=== PATIENT | female | born 1980 | race Caucasian/White ===

== ENCOUNTER 2020-04-19 12:59 | Emergency (ER) | payer OTHER, SELFPAY ==
--- NOTE | ~2020-04-19 | XR_ITS ---
EXAMINATION: XR hand RT min 3V INDICATION: Right hand pain TECHNIQUE: Three views of the right hand are obtained. COMPARISON: None available FINDINGS: There is no fracture, dislocation, or subluxation. The bones, soft tissues, and joint space s are normal. IMPRESSION: 1. No acute osseous abnormality. Reviewed, dictated and finalized at location A. EEPER
[2020-04-19 13:06] VITALS: BP 123/67; PULSE 75; RESP 16; TEMP 36.4; O2SAT 100
--- NOTE | 2020-04-19 13:16 | ED.UPPEXIN ---
HPI - Extremity Injury (Upper) General Chief Complaint: Extremity Injury, Upper Stated Complaint: rt hand middle finger injury/ear pain Time Seen by Provider: 04/19/20 13:19 Source: patient and RN notes reviewed Mode of arrival: ambulatory Limitations: no limitations History of Present Illness HPI narrative: 39-year-old female presents with concern for right hand pain, swelling, bruising. Reports symptoms started yesterday when she snapped her fingers and felt a pop over the knuckle of the third digit of the hand. Reports when she moves that finger the knuckle moves as well. She denies direct trauma. She has been putting ice on it In a separate complaint patient reports bilateral ear pain and continuous purulent drainage. She denies any nasal congestion, sinus pressure, fever, decreased hearing. MD complaint: injury to: right and finger Related Data Allergies Allergy/AdvReac Type Severity Reaction Status Date / Time Sulfa (Sulfonamide Allergy Unknown Other Verified 10/21/18 18:28 Antibiotics) Review of Systems Review of Systems: Narrative: CONSTITUTIONAL: Denies malaise, chills, sweats, or fever. EYES: Denies visual changes, redness, or discharge. ENT: Denies rhinorrhea, congestion, sinus pain, or sore throat. Reports bilateral ear pain and drainage CARDIOVASCULAR: Denies chest pain, palpitations, or edema. RESPIRATORY: Denies cough or dyspnea. SKIN: Bruising to the right hand MUSCULOSKELETAL: Reports pain, bruising, swelling to the right hand beneath the third digit NEUROLOGIC: Denies numbness, weakness All systems reviewed & are unremarkable except as noted in HPI and below PMFSH Comments At time of signature, agree with nursing past medical, surgical, social and family history. There is no relevant family history pertinent to the presenting complaint Exam Narrative: Exam Narrative: GENERAL: Well-appearing, well-nourished, and in no acute distress. HEAD: Normocephalic EYES: PERRLA, conjunctivae clear ENT: Nares clear, turbinates erythematous, clear discharge. Mucous membranes moist. TM pearly purulent, yellow with no visible light reflex bilaterally, auditory canal mildly edematous with purulent drainage; no tragal tenderness. NECK: Supple. CHEST: Speaks in full sentences. No respiratory distress. HEART: Regular rate and rhythm. Normal and equal peripheral pulses. EXTREMITIES: Third digit of right hand has normal sensation. Mild edema and ecchymosis noted over the third MCP joint. 3/5 strength with digit flexion, extension. Range of motion limited. No clubbing, cyanosis, or edema noted. General digit dorsal hand tenderness. Skin intact. Normal digital cascade with flexion of fingers, median, ulnar and radial nerve intact. Normal sensation of each side of finger. Can perform 'okay' sign,, cannot perform cross over finger test of index and middle fingers', can perform 'thumbs up' sign. No scissoring. Normal thumb opposition. Good capillary refill and radial pulse. Distal capillary refill less than 3 seconds. SKIN: Warn, dry, intact, pink. No rash NEURO: Alert and oriented x3. PSYCH: Normal mood and affect Course Course Emergency Course: Patient is aware of diagnosis, understands and agrees to treatment plan. Anticipatory guidance given. Patient agrees to follow-up as directed and is aware of reasons to seek care at the emergency department. Portions of this record may have been created with voice recognition software Vital Signs Vital signs: Vital Signs Temperature 97.6 F 04/19/20 13:06 Pulse Rate 75 04/19/20 13:06 Respiratory Rate 16 04/19/20 13:06 Blood Pressure 123/67 04/19/20 13:06 Pulse Oximetry 100 04/19/20 13:06 Temperature 97.6 F 04/19/20 13:06 Pulse Rate 75 04/19/20 13:06 Respiratory Rate 16 04/19/20 13:06 Blood Pressure 123/67 04/19/20 13:06 Pulse Oximetry 100 04/19/20 13:06 Reviewed. MDM - Extremity Injury (Upper) MDM Narrative Medical decision making narrati
== END 2020-04-19 13:37 | disposition home or self-care (01) ==
PROVIDERS: Emergency Provider Nurse Practitioner
DX: S69.91XA Unspecified injury of right wrist, hand and finger(s), initial encounter (principal); X58.XXXA Exposure to other specified factors, initial encounter; H66.013 Acute suppurative otitis media with spontaneous rupture of ear drum, bilateral
CPT/HCPCS: 73130; 99213; G0463

== ENCOUNTER 2020-12-17 10:49 | Emergency (ER) | payer OTHER, SELFPAY ==
--- NOTE | ~2020-12-17 | XR_ITS ---
EXAMINATION: XR chest 2V DATE: 12/17/2020 11:23 INDICATION: Chest pain radiating to the left upper back TECHNIQUE: PA and lateral views of the chest were obtained. COMPARISON: Chest radiograph dated 10/21/2018 FINDINGS: The lungs remain clear with no focal airspace opacities, pulmonary edema, pleural effusion or pneumot horax. The cardiomediastinal silhouette is normal. Mild thoracic dextrocurvature with mild spondylosi s. IMPRESSION: 1. No acute cardiopulmonary disease. Reviewed, dictated and finalized at location A.
[2020-12-17 10:54] VITALS: BP 122/66; PULSE 77; RESP 16; TEMP 36.9; O2SAT 100
--- NOTE | 2020-12-17 11:06 | ED.CHESTPAIN ---
HPI - Chest Pain General Chief Complaint: Chest Pain Stated Complaint: chest pain/upper back pain Time Seen by Provider: 12/17/20 11:06 Source: patient Mode of arrival: ambulatory Limitations: no limitations History of Present Illness HPI narrative: Sima Dove is a 40 yo female with an odd feeling in her chest that radiates to her back x3 days that can be reproduced she is obese works a sedentary job smokes a pack of cigarettes a day although she denies that it is painful she is deconditioned enough that she gets short of breath walking up and down stairs Related Data Home Medications Medication Instructions Recorded Confirmed No Home Medications 12/17/20 12/17/20 Allergies Allergy/AdvReac Type Severity Reaction Status Date / Time Sulfa (Sulfonamide Allergy Unknown Other Verified 12/17/20 10:54 Antibiotics) Review of Systems Review of Systems: Narrative: CONSTITUTIONAL: Denies fever, chills, sweats. EYES: Denies visual changes, redness, discharge. ENT: Denies rhinorrhea, congestion, sore throat, otalgia. CARDIOVASCULAR: Has chest pain, palpitations, edema. RESPIRATORY: Denies dyspnea, wheezing, cough GASTROINTESTINAL: Denies abdominal pain, nausea, vomiting, diarrhea. GENITOURINARY: Denies dysuria, hematuria, abnormal discharge SKIN: Denies rash or itching. NEUROLOGIC: Denies numbness, or focal weakness. PSYCHIATRIC: Denies anxiety or depression. PMFSH Family History Family History (Updated 12/17/20 @ 11:27 by Shannan Kitchen CNP) Other Hypertension Social History Social History (Updated 12/17/20 @ 11:28 by Shannan Kitchen CNP) Smoking packs per day: 1 Smoking cigarettes per day: 20.0 Smoking status: Current every day smoker Alcohol intake: current Comments At time of signature, I agree with nursing past medical, surgical, social and family history. There is no relevant family history pertinent to the presenting complaint. Exam Narrative: Exam Narrative: GENERAL: This is a well-nourished, well-developed patient, in mild distress. HEAD: normocephalic, atraumatic. EYES: Sclera clear/white. Hearing grossly intact. NOSE: External nose normal without nasal discharge, nares without redness, no rhinorrhea. THROAT: Mucous membranes moist, NECK: Neck supple, CARDIOVASCULAR: Regular rate and rhythm without murmurs, gallops, or rubs. Not reproducible pain in chest and radiates to back RESPIRATORY: Clear to auscultation. Breath sounds equal bilaterally. No wheezes, rales, or rhonchi. GASTROINTESTINAL: Abdomen soft, SKIN: warm, intact with no suspicious lesions or rash, good texture and turgor. NEURO: awake, alert, and oriented to person, place and time. There were no obvious focal neurologic abnormalities. Steady gait EXTREMITIES: Normal range of motion. BACK: Nontender without deformity Course Course Emergency Course: Patient is a smoker that comes with undefined chest pain radiates to her back, she is obese, has a sedentary job, and states that she gets winded walking up and down stairs, states that sometimes it feels better when she gets up to walk Heart score is 2 EKG is normal with no ST abnormality no QT pro prolongation no axis deviation and the rate is 76 Chest x-ray is normal with no focal airspace opacities pulmonary edema pleural effusion or pneumothorax Because of her smoking and ongoing discomfort I have referred her to ER for cardiac evaluation and recommended that she get a primary care physician for follow-up as she may require a stress test Vital Signs Vital signs: Vital Signs Temperature 98.5 F 12/17/20 10:54 Pulse Rate 77 12/17/20 10:54 Respiratory Rate 16 12/17/20 10:54 Blood Pressure 122/66 12/17/20 10:54 Pulse Oximetry 100 12/17/20 10:54 Temperature 98.5 F 12/17/20 10:54 Pulse Rate 77 12/17/20 10:54 Respiratory Rate 16 12/17/20 10:54 Blood Pressure 122/66 12/17/20 10:54 Pulse Oximetry 100 12/17/20 10:54 MDM - Chest
--- NOTE | 2020-12-17 12:38 | ECG_ITS ---
Measurements Intervals [place] Rate: 76 P: 48 OH: 116 QRS: 38 QRSD: 90 T: 47 QT: 375 QTc: 424 Interpretive Statements SINUS RHYTHM WITH SHORT [place] INTERVAL BORDERLINE ECG Electronically Signed On 12-17-2020 13:21:09 CDT by Sunday Cullen D.O.
== END 2020-12-17 11:40 | disposition short-term general hospital (02) ==
PROVIDERS: Emergency Provider Nurse Practitioner
DX: R07.89 Other chest pain (principal); F17.210 Nicotine dependence, cigarettes, uncomplicated
CPT/HCPCS: 71046; 93005; 99213; G0463

== ENCOUNTER 2020-12-17 11:59 | Emergency (ER) | payer OTHER, SELFPAY ==
--- NOTE | ~2020-12-17 | XR_ITS ---
EXAMINATION: XR chest 2V DATE: 12/17/2020 12:16 INDICATION: Chest pain TECHNIQUE: PA and lateral views of the chest are obtained. COMPARISON: 1119 hours FINDINGS: The lungs are free of acute opacities. There is no pleural effusion or pneumothorax. The ca rdiomediastinal silhouette is normal. There is dextrocurvature and mild spondylosis of the thoracic s pine. IMPRESSION: 1. No acute cardiopulmonary abnormality. Reviewed, dictated and finalized at location B.
--- NOTE | 2020-12-17 12:01 | ECG_ITS ---
Measurements Intervals [place] Rate: 80 P: 46 GA: 139 QRS: 24 QRSD: 90 T: 34 QT: 375 QTc: 434 Interpretive Statements SINUS RHYTHM BASELINE ARTIFACT- II, III, AVF NORMAL ECG Electronically Signed On 12-17-2020 13:21:36 CDT by Sunday Cullen D.O.
[2020-12-17 12:03] VITALS: BP 132/91; PULSE 90; RESP 17; TEMP 36.6; O2SAT 99
[2020-12-17 12:09] VITALS: PULSE 90; O2SAT 99
[2020-12-17 12:16] LABS: Basophils Absolute Auto 0.1 K/mm3 (0.0-0.1); Basophils Percent Auto 0.9 % (0.2-1.2); Eosinophils Absolute Auto 0.1 K/mm3 (0-0.3); Eosinophils Percent Auto 1.3 % (0-4.4); Hematocrit 43.7 % (37.0-47.0); Hemoglobin 13.9 g/dL (12.0-15.0); Immature Granulocyte Absolute 0.05 K/mm3 (0.00-0.031); Immature Granulocyte Percent A 0.5 % (0-0.5); Lymphocytes Absolute Auto 3.15 K/mm3 (0.9-3.2); Lymphocytes Percent Auto 31.6 % (18.3-44.2); Mean Corpuscular HGB Conc 31.8 g/dl (32-36); Mean Corpuscular Hemoglobin 31.2 pg (26-34); Mean Corpuscular Volume 98.2 fl (80-100); Mean Platelet Volume 8.7 fl (7.4-10.4); Monocytes Absolute Auto 0.6 K/mm3 (0.1-0.6); Neutrophils Absolute Auto 5.9 K/mm3 (1.3-6.7); Neutrophils Percent Auto 59.7 % (45.5-73.1); Platelet Count Result 331 k/mm3 (150-375); Red Blood Count 4.45 M/mm3 (4.2-5.4); Red Cell Distribution Width 12.9 % (11.5-14.5)
[2020-12-17 12:30] LABS: Prothrombin Time 12.6 Seconds (11.1-14.7)
[2020-12-17 12:31] LABS: Partial Thromboplastin Time 28.6 SECONDS (22.3-36.8)
[2020-12-17 12:33] LABS: Anion Gap 10 mmol/L (8-16); Blood Urea Nitrogen 10 mg/dL (7-17); Calcium 8.9 mg/dL (8.4-10.2); Carbon Dioxide 27 mmol/L (22-30); Chloride 104 mmol/L (98-107); Estimated CRCL calculation 89 ml/min; Estimated Glomerular Filt Rate > 60; Glucose 79 mg/dL (65-105); Potassium 3.5 mmol/L (3.4-5.0); Sodium 141 mmol/L (137-145)
[2020-12-17 12:43] LABS: Troponin I < 0.012 ng/mL (0.000-0.034)
--- NOTE | 2020-12-17 13:05 | ED.CHESTPAIN ---
HPI - Chest Pain General Chief Complaint: Chest Pain Stated Complaint: Chest Pain Time Seen by Provider: 12/17/20 12:34 Source: patient Mode of arrival: ambulatory Limitations: no limitations History of Present Illness HPI narrative: Patient is a 40-year-old female complaining of chest pain, left-sided, tightness, was 7 out of 10 earlier, now resolved started approximately 3 days ago. Patient denies any shortness of breath, abdominal pain, nausea, vomiting, diaphoresis, fever or chills. Related Data Home Medications Medication Instructions Recorded Confirmed No Home Medications 12/17/20 12/17/20 Allergies Allergy/AdvReac Type Severity Reaction Status Date / Time Sulfa (Sulfonamide AdvReac Other Verified 12/17/20 12:08 Antibiotics) Review of Systems Review of Systems: All systems reviewed & are unremarkable except as noted in HPI and below Constitutional: Constitutional: Denies body ache(s), Denies chills, Denies excessive sweating, Denies fatigue, Denies fever(s), Denies headache(s), Denies lethargy, Denies malaise, Denies weakness and Denies weight loss Eyes: Eyes: Denies blurry vision, Denies change in vision and Denies loss of vision ENT: Denies dizziness, Denies ear discharge, Denies headache(s), Denies lip swelling, Denies epistaxis, Denies nasal congestion, Denies neck pain, Denies throat swelling and Denies tongue swelling Cardiovascular: Cardiovascular: Denies chest pain, Denies chest pain at rest, Denies chest pain with activity, Denies diaphoresis, Denies rapid heart rate, Denies edema, Denies irregular heart rhythm, Denies lightheadedness, Denies palpitations, Denies dyspnea and Denies dyspnea on exertion Respiratory: Respiratory: Denies chest congestion, Denies cough, Denies hemoptysis, Denies dyspnea and Denies dyspnea on exertion Gastrointestinal: Gastrointestinal: Denies abdominal pain, Denies melena, Denies hematochezia, Denies diarrhea, Denies nausea, Denies vomiting and Denies hematemesis Musculoskeletal: Musculoskeletal: Denies abnormal gait, Denies deformity, Denies joint swelling, Denies limited range of motion, Denies neck pain and Denies numbness Neurologic: Denies Abnormal speech present, Denies abnormal gait, Denies confusion, Denies dizziness, Denies headache(s), Denies focal weakness, Denies loss of vision, Denies numbness, Denies Other visual disturbances, Denies Sensory deficit (Neuro) and Denies weakness Psychiatric: Psychiatric: Denies confusion, Denies depression, Denies auditory hallucinations, Denies homicidal ideation and Denies suicidal ideation Endocrine: Endocrine: Denies cold intolerance, Denies excessive sweating, Denies fatigue, Denies heat intolerance and Denies palpitations Hematologic/Lymphatic: Hematologic/Lymphatic: Denies easy bleeding and Denies easy bruising Allergic/Immunologic: Allergic/Immunologic: Denies lip swelling, Denies throat swelling and Denies tongue swelling [facility] Family History Family History (Updated 10/05/18 @ 00:00 by CONVUSER A) Mother Family history of type 2 diabetes mellitus Social History Social History Smoking status: Current every day smoker Gender identity (if verbalized by the patient): Female Comments Past medical history: None Family history: Diabetes, hypertension, [place] (grandfather at 94 years old) Social history: Positive for smoker, no EtOH or drug use Exam Const: General: cooperative, healthy appearing, comfortable, no acute distress, well developed, alert and awake; No confusion Orientation/consciousness: oriented to person, oriented to place, oriented to time, patient oriented x3 and No confusion Limitations: no limitations HENMT: Head: normal to inspection, normocephalic and atraumatic Ears: hearing grossly normal bilaterally, TM normal on the right and TM normal on the left General nose exam: Normal external nose present, Normal nares present and No nasal discharge present Face and sinus: normal facial exam M
[2020-12-17 13:06] VITALS: BP 115/59; PULSE 69; RESP 19; O2SAT 98
[2020-12-17 15:25] VITALS: BP 109/53; PULSE 65; RESP 18; O2SAT 100
[2020-12-17 15:42] LABS: Troponin I < 0.012 ng/mL (0.000-0.034)
[2020-12-17 16:06] VITALS: BP 114/77; PULSE 63; RESP 14; O2SAT 100
== END 2020-12-17 16:10 | disposition home or self-care (01) ==
PROVIDERS: Emergency Medicine; Emergency Provider Emergency Medicine
DX: R07.89 Other chest pain (principal); F17.210 Nicotine dependence, cigarettes, uncomplicated
CPT/HCPCS: 36415; 71046; 80048; 84484; 85025; 85610; 85730; 93005; 99284

== ENCOUNTER 2022-12-14 14:11 | Emergency (ER) | payer OTHER, SELFPAY ==
--- NOTE | ~2022-12-14 | CT_ITS ---
EXAMINATION: CT abdomen pelvis w con DATE: 12/14/2022 15:48 INDICATION: Right upper quadrant pain TECHNIQUE: Computed tomography (CT) of the abdomen and pelvis was performed with 100 mL Omnipaque-350 intravenous contrast. Automated exposure control and iterative reconstruction technique were employe d. The dose-length product was 1394.41 mGy-cm. COMPARISON: 10/21/2018. FINDINGS: Lower thorax: Minimal dependent atelectasis/scar. Small fat-containing left diaphragmatic hernia. Liver: Subcentimeter hypodensities near the gallbladder fossa, likely small cysts or hemangiomas. Biliary/Gallbladder: Gallbladder is normal. No bile duct dilation. Pancreas: No mass or duct dilation. Spleen: Normal. Adrenals:No mass. Kidneys: No mass, stone, or hydronephrosis. GI tract: Mild distal esophageal and antral wall edema. No small or large bowel dilation. Normal appe ndix. Mild diverticulosis without diverticulitis. Mesentery/Peritoneum: No ascites, mass, or free air. Retroperitoneum: No mass. Mild atherosclerotic abdominal aortic and/or arterial calcifications. Pelvis: Pelvic organs are within normal limits. 2.9 cm simple left ovarian cyst or dominant follicle, requiring no additional workup. Trace free pelvic fluid, within physiologic range. Soft Tissues: Small uncomplicated fat-containing umbilical and right inguinal hernias. Bones: No acute osseous finding. Bilateral pars defects at L4. Unilateral left pars defect at L5. IMPRESSION: Mild esophagitis/gastritis. No other acute abdominopelvic process detected. Reviewed, dictated and finalized at location K.
[2022-12-14 14:28] VITALS: BP 117/50; PULSE 68; RESP 18; TEMP 36.3; O2SAT 100
--- NOTE | 2022-12-14 14:51 | ED.ABDPAIN ---
HPI - Abdominal Pain General Chief Complaint: Abdominal Pain Stated Complaint: abdominal pain Time Seen by Provider: 12/14/22 14:51 Source: patient History of Present Illness HPI narrative: 42 years old white female presents with intermittent right upper abdomen at the mid axillary line and right flank and right upper quadrant sharp stabbing pain off and on for months. Patient was seen for that before with negative work-up. She denies any fever, chills, nausea, vomiting, diarrhea, constipation, vaginal bleeding or discharge or any possibility of . Patient does not take medicine at home, she smokes cigarettes, denies alcohol or drug use. Patient works on a desk, sitting for long hours, hunching over, with intermittent lower back pain. Patient denies any trauma. Related Data Allergies Allergy/AdvReac Type Severity Reaction Status Date / Time Sulfa (Sulfonamide Allergy Unknown Other Verified 11/25/22 15:17 Antibiotics) Review of Systems Review of Systems: All systems reviewed & are unremarkable except as noted in HPI and below PMFSH Past Medical History Medical History No active medical problems Surgical History Surgical History No history of previous surgery Family History Family History Mother Family history of type 2 diabetes mellitus Other Hypertension Social History Social History Smoking packs per day: 1 Smoking cigarettes per day: 20.0 Years smoked: 20 Smoking pack-years: 20.00 Smoking status: Current every day smoker Tobacco type: cigarettes Alcohol intake: current Lack of Transportation: YES Lack of Food: Never True Current Housing: I Have Housing Concerned About Future Housing: No Difficulty Paying Gas/Electric Bills: No Difficulty Paying for Meds: No Currently Unemployed: Decline to Answer Education: Decline to Answer Difficulty w/ Childcare or Family Care: Decline to Answer Gender identity (if verbalized by the patient): Female Exam Narrative: General appearance: Well-developed, well-nourished Skin: Normal color Head: Normocephalic, nontraumatic Eyes: Clear conjunctiva ENT: Oropharynx normal, ears normal, nose normal Neck: Supple, nontender Chest and respiratory: Airway patent, no respiratory distress, no accessory muscle use Heart: Regular rate/rhythm Abdomen: Soft, nontender, no organomegaly, quiet bowel sounds Vascular: Normal peripheral pulses, normal capillary refill. Musculoskeletal: Moderate tenderness lower back at the lumbar area midline, no bruises, no swelling or rash. Slight limited range of motion because of the lower back discomfort Neurologic: Alert and oriented ?3, [employer] is normal as tested, no gross motor deficit Course Vital Signs Vital signs: Vital Signs Temperature 36.3 C L 12/14/22 14:28 Pulse Rate 68 12/14/22 14:28 Respiratory Rate 18 12/14/22 14:28 Blood Pressure 117/50 L 12/14/22 14:28 Pulse Oximetry 100 12/14/22 14:28 Oxygen Delivery Room Air 12/14/22 14:28 Temperature 36.3 C L 12/14/22 14:28 Pulse Rate 68 12/14/22 14:28 Respiratory Rate 18 12/14/22 14:28 Blood Pressure 117/50 L 12/14/22 14:28 Pulse Oximetry 100 12/14/22 14:28 Oxygen Delivery Room Air 12/14/22 14:28 MDM - Abdominal Pain MDM Narrative Medical decision making narrative: Patient presents with intermittent back pain mainly lower area and right flank and right upper abdomen for months. Patient blaming in the way she s
[2022-12-14 15:25] LABS: Appearance Urine Cloudy (Clear); Bacteria Urine 4+ /hpf; Bilirubin Urine Negative (Negative); Color Urine Yellow (Yellow); Glucose Urine UA Negative (Negative); Ketones Urine Trace mg/dL (Negative); Leukocyte Esterase Ur 3+ LEU/UL (Negative); Nitrate Urine Negative (Negative); Non Pathogenic Casts 0-2; Protein Urine Trace mg/dL (Negative); Specific Grav Ur 1.023 (1.001-1.035); Squamous Epithelial Cell Urine Moderate /hpf (Few); WBC Urine 51-100 /hpf; pH Urine 5.5 (5.0-9.0)
[2022-12-14 15:26] LABS: Basophils Absolute Auto 0.1 K/mm3 (0.0-0.1); Basophils Percent Auto 0.5 % (0.2-1.2); Eosinophils Absolute Auto 0.1 K/mm3 (0-0.3); Eosinophils Percent Auto 1.4 % (0-4.4); Hematocrit 42.3 % (37.0-47.0); Immature Granulocyte Absolute 0.03 K/mm3 (0.00-0.031); Immature Granulocyte Percent A 0.3 % (0-0.5); Lymphocytes Absolute Auto 3.47 K/mm3 (0.9-3.2); Lymphocytes Percent Auto 35.2 % (18.3-44.2); Mean Corpuscular HGB Conc 33.1 g/dl (32-36); Mean Corpuscular Hemoglobin 32.1 pg (26-34); Monocytes Absolute Auto 0.7 K/mm3 (0.1-0.6); Monocytes Percent Auto 7.4 % (2.6-8.5); Neutrophils Absolute Auto 5.5 K/mm3 (1.3-6.7); Neutrophils Percent Auto 55.2 % (45.5-73.1); Platelet Count Result 341 k/mm3 (150-375); Red Blood Count 4.36 M/mm3 (4.2-5.4); Red Cell Distribution Width 13.1 % (11.5-14.5); White Blood Count 9.9 K/mm3 (4.5-10.0)
[2022-12-14 15:29] LABS: Add Urine Microscopic? YES
[2022-12-14] MEDS: SODIUM CHLORIDE 0.9% IV 1,000 ML 999 ML IV CONT (15:33)
[2022-12-14 15:38] LABS: Alanine Aminotransferase 11 U/L (6-35); Albumin Level 4.3 g/dL (3.5-5.1); Alkaline Phosphatase 89 U/L (38-126); Anion Gap 5 mmol/L (8-16); Aspartate Amino Transferase 22 U/L (14-36); Bilirubin,Total 0.4 mg/dL (0.2-1.3); Blood Urea Nitrogen 13 mg/dL (7-17); Calcium 8.7 mg/dL (8.4-10.2); Carbon Dioxide 29 mmol/L (22-30); Chloride 104 mmol/L (98-107); Estimated Glomerular Filt Rate > 60; Glucose 93 mg/dL (65-110); Lipase 59 U/L (23-300); Potassium 4.1 mmol/L (3.4-5.0); Sodium 138 mmol/L (137-145)
[2022-12-14 15:44] LABS: Estimated Glomerular Filt Rate > 60
[2022-12-14] MEDS: KETOROLAC 30 MG/ML VIAL (*BKC) IV PUSH (17:57)
[2022-12-14 18:05] VITALS: BP 130/80; PULSE 80; RESP 16; O2SAT 98
== END 2022-12-14 18:05 | disposition home or self-care (01) ==
PROVIDERS: Emergency Provider Emergency Medicine
DX: N39.0 Urinary tract infection, site not specified (principal); M54.50 Low back pain, unspecified; F17.210 Nicotine dependence, cigarettes, uncomplicated
CPT/HCPCS: 36415; 74177; 80053; 81001; 81025; 83690; 85025; 87086; 87088; 96361; 96374; 96375; 99284; J0696; J1885; J7030; Q9967

== ENCOUNTER 2022-12-30 14:56 | Outpatient (CLI) | payer OTHER, SELFPAY ==
[2022-12-30 16:49] LABS: Thyroid Stimulating Hormone 0.867 uIU/mL (0.465-4.680)
[2022-12-30 18:56] LABS: HIV 1/2 Ab P24 Ag Result Negative (Negative)
[2022-12-31 17:27] LABS: Rapid Plasma Reagin Non-Reactive (NonReactive)
[2023-01-04 14:17] LABS: FSH 19.4 mIU/mL (***)
[2023-01-07 08:14] LABS: Estradiol, Ultrasensitive 313 pg/mL
== END 2022-12-30 14:57 | disposition home or self-care (01) ==
PROVIDERS: Visit Provider Student in an Organized Health Care Education/Training Program
DX: N92.6 Irregular menstruation, unspecified (principal); Z11.3 Encounter for screening for infections with a predominantly sexual mode of transmission; R30.0 Dysuria
CPT/HCPCS: 36415; 82670; 83001; 84443; 86592; 86695; 86696; 86703; 87086; G0432

== ENCOUNTER 2023-04-06 09:14 | Emergency (ER) | payer OTHER, SELFPAY ==
[2023-04-06 09:32] VITALS: BP 111/62; PULSE 86; RESP 16; TEMP 36.3; O2SAT 99
--- NOTE | 2023-04-06 10:04 | ED.SKABFB ---
HPI - Skin/Abscess/Foreign Bdy General Chief complaint: Skin/Abscess/Foreign Body Stated complaint: Infected finger Time Seen by Provider: 04/06/23 09:57 Source: patient and RN notes reviewed Mode of arrival: ambulatory Limitations: no limitations History of Present Illness HPI narrative: Patient presents today complaining of swelling and pain to the right 2nd fingertip. Denies injury or trauma. Symptoms began 4 days ago. Patient states symptoms have slightly improved today. When asked to rate her pain, patient states it is sore. She tried Prid salve without relief. Related Data Allergies Allergy/AdvReac Type Severity Reaction Status Date / Time Sulfa (Sulfonamide Allergy Unknown Other Verified 04/06/23 09:28 Antibiotics) Review of Systems Review of Systems: CONSTITUTIONAL: Denies body aches, fever, chills, or sweats. EYES: Denies visual changes, redness, or discharge. ENT: Denies rhinorrhea, congestion, sore throat, or otalgia. CARDIOVASCULAR: Denies chest pain, palpitations, or edema. RESPIRATORY: Denies cough or dyspnea. GASTROINTESTINAL: Denies abdominal pain, nausea, vomiting, or diarrhea. GENITOURINARY: Denies dysuria or hematuria. SKIN: Denies rash, itching, or wounds. MUSCULOSKELETAL: + right 2nd finger pain NEUROLOGIC: Denies headache, numbness, tingling, or weakness. PSYCH: Denies depression or anxiety. [facility], [facility] Past Medical History Medical History HSV (herpes simplex virus) anogenital infection Screening for breast cancer Surgical History Surgical History H/O gynecological procedure D & C missed ab Family History Family History Mother Family history of type 2 diabetes mellitus Other Hypertension Social History Social History Smoking packs per day: 1 Smoking cigarettes per day: 20.0 Years smoked: 20 Smoking pack-years: 20.00 Smoking status: Current every day smoker Tobacco type: cigarettes Alcohol intake: current Substance use: never Lack of Transportation: YES Lack of Food: Never True Current Housing: I Have Housing Concerned About Future Housing: No Difficulty Paying Gas/Electric Bills: No Difficulty Paying for Meds: No Currently Unemployed: Decline to Answer Education: Decline to Answer Difficulty w/ Childcare or Family Care: Decline to Answer Living arrangements: alone Occupation/Education: occupation Gender identity (if verbalized by the patient): Female Comments At time of signature, I have reviewed and agree with nursing past medical, surgical, social and family history unless otherwise noted. Please see nursing chart for further information. There is no relevant family history pertinent to the presenting complaint Exam Narrative: GENERAL: Well-appearing, well-nourished, and in no acute distress. HEAD: Normocephalic, atraumatic. EYES: EOMI. No redness or drainage. Conjunctivae normal. ENT: Mucous membranes pink and moist. NECK: Normal AROM. CHEST: No respiratory distress. EXTREMITIES: Right 2nd finger: Palmar aspect of distal phalanx is slightly edematous and erythematous. No break in the skin noted. Dorsal aspect of the finger is normal. Distal sensation intact. Capillary refill normal. Full range of motion. SKIN: Warm, dry, no rash. Capillary refill normal. Normal skin turgor. NEURO: No focal deficits. Alert and oriented x3. Gait steady. PSYCH: Normal affect. No signs of depression or anxiety. Course Course Level of Care: Express Care Visit Vital Signs Vital signs: Vital Signs Temperature 97.3 F L 04/06/23 09:32 Pulse Rate 86 04/06/23 09:32 Respiratory Rate 16 04/06/23 09:32 Blood Pressure 111/62 04/06/23 09:32 Pulse Oximetry 99 04/06/23 09:32
== END 2023-04-06 10:20 | disposition home or self-care (01) ==
PROVIDERS: Emergency Provider Nurse Practitioner
DX: L03.011 Cellulitis of right finger (principal); F17.210 Nicotine dependence, cigarettes, uncomplicated
CPT/HCPCS: 99213; G0463

== ENCOUNTER 2023-07-13 10:23 | Outpatient (CLI) | payer OTHER, SELFPAY ==
--- NOTE | ~2023-07-13 | US_ITS ---
EXAMINATION: US pelvic complete w TV DATE: 07/13/2023 10:51 INDICATION: Pelvic pain Comparison:01/02/2023 TECHNIQUE: Multiple transabdominal and endovaginal sonographic images of the pelvis performed. FINDINGS: The uterus measures 8.1 x 0.5 x 5.6 cm. The endometrial complex measures 10 mm. The right ovary measures 2.2 x 2.9 x 2 cm and the left ovary measures 1.6 x 1.6 x 1.4 cm. There are small follicles in each ovary. Normal doppler signal in both ovaries. There is no free fluid in the pelvis. There are no abnormal masses seen on either side. IMPRESSION: 1. Unremarkable pelvic ultrasound. Reviewed, dictated and finalized at location L. S COUNTRY COACH
== END 2023-07-13 10:24 ==
LOC: MICIMG 10:23
PROVIDERS: PCP Student in an Organized Health Care Education/Training Program; Visit Provider Student in an Organized Health Care Education/Training Program
DX: R10.2 Pelvic and perineal pain (principal)
CPT/HCPCS: 76830; 76856

== ENCOUNTER 2024-12-27 13:39 | Outpatient (CLI) | payer OTHER, SELFPAY ==
--- NOTE | ~2024-12-27 | XR_ITS ---
EXAM/ PROCEDURE: XR hip RT min 2V - 12/27/2024 14:18 CDT HISTORY: 44 years old Female with Right Flank Pain COMPARISON: None available TECHNIQUE: Two view(s) FINDINGS/ IMPRESSION: There are no fractures or dislocations.Joint space narrowing, subchondral sclerosis, subchondral cyst formation and osteophyte formation, compatible with moderate osteoarthritis. Reviewed, dictated and finalized at location A.
--- NOTE | ~2024-12-27 | XR_ITS ---
Lumbosacral Spine: AP, oblique, and lateral views Clinical History: Pain Findings: Probable L4 pars interarticularis defects, with 7 mm anterolisthesis of L4 over L5. There i s moderate facet arthropathy throughout the lumbar spine. Mild degenerative disc narrowing at L4-L5. The remaining intervertebral disc spaces are preserved. The sacroiliac joints are normally outlined. Impression: Probable L4 pars interarticularis defects, with 7 mm anterolisthesis of L4 over L5. Additional degenerative changes, as above. Reviewed, dictated and finalized at location M. Impression: Probable L4 pars interarticularis defects, with 7 mm anterolisthesis of L4 over L5. Additional degenerative changes, as above.
== END 2024-12-27 13:40 | disposition home or self-care (01) ==
PROVIDERS: PCP Nurse Practitioner Adult Health; Visit Provider Nurse Practitioner Adult Health
DX: M43.16 Spondylolisthesis, lumbar region (principal); M51.369 Other intervertebral disc degeneration, lumbar region without mention of lumbar back pain or lower extremity pain; R10.9 Unspecified abdominal pain; G89.29 Other chronic pain
CPT/HCPCS: 72110; 73502